=== PATIENT | female | born 1940 | race Caucasian/White ===

== ENCOUNTER 2016-11-22 06:15 | Day surgery (SDC) | payer MEDICARE, BC ==
[~2016-11-22 06:15] MED LIST: ADVICOR 1,001 BOTTL1; ADVICOR 1,001 BOTTLE; B 50; BALANCE B-501 EAC1 PO; BENADRILINA25 MG; BENADRYL25 M3 PO; BENEDRYL; BUSPAR5 MG; CALCIUM + D 6001 TAB; CALCIUM600 M1 PO; CENTRUM SILVER1 EAC3 PO; CLARITAN; CLARITIN10 M6 PO; CO Q-10100 MG PO; DETROL LA2 M1 PO; EFFEXOR XR37.5 M1 PO; ESTER-C 500 MG1 EACH PO; FISH OIL300 M1 PO; FLONASE16 GM; GARLIC1 CAP PO; IBUPROFEN200 MG; IBUPROFEN200 MG PO; JUICE PLUS; NUPRIN200 M; SLO-NIACIN500 MG PO; SYNTHROID50 MC1 PO; TUMERIC; VITAMIN B 50; VITAMIN D2000 UNI1 PO; [UNRECOGNIZED DRUG - OTHER]
== END 2016-11-22 09:55 ==
LOC: ENDOS 06:15 → SHSB 06:18 → ENDOS 07:50
PROC: 0DBB8ZX Excision of Ileum, Via Natural or Artificial Opening Endoscopic, Diagnostic (ICD-10-PCS; principal; 2016-11-22)
PROC: 0DBK8ZX Excision of Ascending Colon, Via Natural or Artificial Opening Endoscopic, Diagnostic (ICD-10-PCS; 2016-11-22)
DX: Z12.11 Encounter for screening for malignant neoplasm of colon (principal); D12.2 Benign neoplasm of ascending colon; K52.9 Noninfective gastroenteritis and colitis, unspecified; K57.30 Diverticulosis of large intestine without perforation or abscess without bleeding; K64.8 Other hemorrhoids; E03.9 Hypothyroidism, unspecified; F41.9 Anxiety disorder, unspecified; F17.210 Nicotine dependence, cigarettes, uncomplicated; Z88.5 Allergy status to narcotic agent; Z88.8 Allergy status to other drugs, medicaments and biological substances; Z90.710 Acquired absence of both cervix and uterus; Z90.12 Acquired absence of left breast and nipple; Z98.49 Cataract extraction status, unspecified eye; Z98.890 Other specified postprocedural states